=== PATIENT | female | born 1995 | race Caucasian/White ===

== ENCOUNTER 2017-06-01 07:58 | Day surgery (SDC) | payer OTHER ==
[2017-05-31 17:41] LABS: Absolute Lymphocytes (CBC) 2.9 K/uL (0.7-4.9); Absolute Monocytes 0.7 K/uL (0.1-1.3); Basophils % 0.4 % (0-1.3); Eosinophils % 0.4 % (0-4.4); Hematocrit 42.1 % (36.0-45.0); Lymphocytes % 27.3 % (15.3-44.8); MCH 29.8 pg (27.0-35.0); MCV 88.4 fL (80-100); MPV 8.8 fL (7.6-11.3); Monocytes % 6.9 % (3.3-12.3); RBC Red Blood Cell Count 4.76 M/uL (3.86-4.86)
[2017-05-31 17:53] LABS: Bicarbonate 27 mEq/L (21-31); Glucose Level 145 mg/dL (65-120); Potassium 3.5 mEq/L (3.6-5.0); Sodium Level 140 mEq/L (135-145)
[2017-05-31 17:54] LABS: BUN Blood Urea Nitrogen 10 mg/dL (6-20); Glomerular Filtration Rate > 90 mL/min (=/>90)
--- NOTE | 2017-05-31 18:16 | RAD REPORT ---
EXAM DESCRIPTION: Crystal Rose (2 Views)05/31/2017 5:55 pm CLINICAL HISTORY: Preop/ICD Z01.812 COMPARISON: 2008 FINDINGS: The lungs appear clear of acute infiltrate. The heart is normal size IMPRESSION: No acute abnormalities displayed
[2017-06-01] MEDS ORDERED: Ringers Lactate 1,000 ML IV ONE (08:41)
[2017-06-01] MEDS ORDERED: CEFOXITIN/SWI 1gm 1 GM/10 ML SYR ONE (08:46)
[2017-06-01 08:58] LABS: Albumin 4.6 g/dL (3.2-5.5); Bilirubin Direct 0.2 mg/dL (0-0.2); Bilirubin Total 0.8 mg/dL (0.3-1.2); Protein, Total 7.8 g/dL (6.0-8.3)
[2017-06-01] MEDS ORDERED: PROPOFOL 200 MG/20 ML VIAL IV ONE (10:17)
[2017-06-01] MEDS ORDERED: LIDOCAINE 2% MPF 5 ML VIAL ONE (10:18)
[2017-06-01] MEDS ORDERED: ROCURONIUM 50 MG/5 ML VIAL IV ONE (10:18)
[2017-06-01] MEDS ORDERED: ONDANSETRON 4 MG/2 ML VIAL ONE (10:18)
[2017-06-01] MEDS ORDERED: MIDAZOLAM HCL 2 MG/2 ML INJ ONE (10:18)
[2017-06-01] MEDS ORDERED: BUPIVACAINE 0.5% PF 10 ML VIAL ONE ×2 (10:18→11:47)
[2017-06-01] MEDS ORDERED: FENTANYL CITR 100 MCG/2 ML ONE (10:19)
--- NOTE | 2017-06-01 11:40 | P.BOP ---
Preoperative diagnosis: acute abdominal pain, biliary dyskinesia, RUQ abd pain Postoperative diagnosis: same Primary procedure: Laparoscopic cholecystectomy Battery Tester And Repairer: FANNY HAYWOOD Estimated blood loss: <5cc Specimen: gb Findings: as above Anesthesia: General Complications: None Transferred to: Recovery Room Condition: Good
[2017-06-01] MEDS: MEPERIDINE HCL 25 MG/0.5 ML ONE ×2 (11:52→12:05)
[2017-06-01] MEDS ORDERED: GLYCOPYRROLATE 0.2 MG/ML SYR ONE (11:54)
[2017-06-01] MEDS ORDERED: NEOSTIGMINE 1 MG/ML -5 ML SYRINGE ONE (11:58)
[2017-06-01] MEDS ORDERED: MEPERIDINE HCL 50 MG/ML AMP ONE (12:29)
--- NOTE | 2017-06-01 12:54 | OP ---
Date of Procedure: 06/01/2017 Surgeon: Momo Teran MD Registered Art Therapist: BRENDEN Lincoln. Preoperative Diagnoses: Acute cholecystitis. Symptomatic cholelithiasis, biliary dyskinesia, right upper quadrant pain. Postoperative Diagnoses: Acute cholecystitis. Symptomatic cholelithiasis, biliary dyskinesia, right upper quadrant pain. Procedure: Laparoscopic cholecystectomy. Anesthesia: General plus local. Complications: None. Indications: This is the case of a 21-year-old patient, who complained with above diagnosis. Fully explained the benefits, alternatives, and risks of laparoscopic, possible open, cholecystectomy which include but are not limited to infection, bleeding, damage to adjacent structures, anesthesia compli cation, choledocholithiasis, bile leak, pancreatitis, PR, and even . She also understands this may not relieve the symptoms. She might need more than one surgical intervention. She understood an d signed the consent. Procedure In Detail: The patient was brought to the operating room and placed in the supine position . Anesthesia was induced without complication. Abdominal area was prepped and draped in a sterile f ashion. Marcaine 0.5% injected for local anesthetic, followed by sharp incision of the skin in the i nfraumbilical region. Incision was carried down to fascia, which was opened under direct vision. Pe ritoneum was encountered, opened under direct vision. Vicryl #1 placed inside the fascia. Jacob tr ocar was carefully introduced. Pneumoperitoneum was obtained. I placed 3 more trocars, 5 mm each on e of them, in the right upper quadrant under direct visualization. The grasper was placed in the fun dus of the gallbladder, another grasper in the infundibulum, retracting the gallbladder in the infero lateral fashion exposing the triangle of Calot and obtaining critical view. Cystic duct and cystic a rtery were clearly isolated and freed circumferentially and a connection between those and the gallbl adder was clearly identified. I proceeded to ligate those by using at least 3 clips proximal, 1 clip distal, ligation in middle. Same was done with the cystic artery. No bile leak. No bleeding. The gallbladder was removed from liver using Bovie cauterizer and removed from the abdominal cavity usin g EndoCatch through umbilical incision. The area was inspected once again. Gallbladder fossa was in tact. Clips were intact with no bile leak. No bleeding. At that moment, I proceeded to remove the trocars under direct vision. Deflated the pneumoperitoneum, closed the fascia with #1 Vicryl. Irrig ated subcutaneous tissue and closed that with 3-0 chromic and skin with subcuticular fashion 3-0 sewing machines salesperson mando with Steri-Strip on top. Sponge count and instrument counts were correct. The patient tolerated the procedure well. The patient was sent to recovery in stable condition. DISCHARGE SUMMARY Diagnosis: Acute cholecystitis, symptomatic cholelithiasis, acute right upper quadrant pain, biliary dyskinesia. Procedure: Laparoscopic cholecystectomy. Disposition: Home. Activity: As tolerated. No heavy lifting. Followup: Follow up in my office in 1 week. Call for appointment at [phone]. Keep area dry for 48 hours, then may shower. Keep Steri-Strips intact. Medications: Include Bactrim-DS p.o. b.i.d. Ultracet q.4 hours p.r.n. pain. MANJINDER Voice ID: [id number] Report ID: [id number]
[2017-06-01] MEDS ORDERED: TRAMADOL 37.5mg/APAP 325mg PER TAB ONE (13:12)
== END 2017-06-01 13:45 | disposition home or self-care (01) ==
LOC: OR 07:58
PROVIDERS: ATTEND Surgery
PROC: 0FT44ZZ Resection of Gallbladder, Percutaneous Endoscopic Approach (ICD-10-PCS; principal; 2017-06-01 10:00)
DX: K80.12 Calculus of gallbladder with acute and chronic cholecystitis without obstruction (principal); K82.8 Other specified diseases of gallbladder; Z01.812 Encounter for preprocedural laboratory examination; Z91.040 Latex allergy status; Z91.018 Allergy to other foods
CPT/HCPCS: 36415; 71046; 80048; 80076; 82150; 83690; 84703; 85025; 88304; J2175; J2250; J2405; J2710; J3010